=== PATIENT | male | born 1970 | race Caucasian/White ===

== ENCOUNTER 2017-02-10 08:04 | Day surgery (SDC) | payer OTHER ==
[2017-02-10] VITALS (9 sets, daily range): BP systolic 107–140; BP diastolic 68–83; PULSE 63–84; RESP 8–18; O2SAT 93–98
[~2017-02-10] VITALS: Ht 182.9 cm; Wt 129.7 kg
[~2017-02-10 08:04] MED LIST: AMLO2.5T PO; Ciprofloxacin Inj 400 MG in IV Premix 1 EACH IV ONE; PRAV10TA2 PO; SILO8CAP PO
[2017-02-10] MEDS ORDERED: fentaNYL-PF 50 mCg/mL 2 mL Inj ONE (08:05)
[2017-02-10] MEDS ORDERED: Ondansetron 2 mg/mL 2 mL Inj ONE (08:05)
[2017-02-10] MEDS: Lactated Ringer's 1,000 ML IV SCH ×2 (08:05→09:46)
[2017-02-10] MEDS ORDERED: Dexamethasone 4 mg/mL Inj ONE (08:05)
[2017-02-10] MEDS ORDERED: Propofol 10,000 mCg/mL 20 mL Inj ONE (08:05)
[2017-02-10] MEDS ORDERED: levoFLOXacin 500 mg/100 mL D5W Premix IV ONE (08:19)
[2017-02-10] MEDS ORDERED: fentaNYL-PF 50 mCg/mL 2 mL Inj IVPUSH PRN (09:40)
[2017-02-10] MEDS ORDERED: EPHEDrine Sulfate 50 mg/mL Inj IVPUSH PRN (09:40)
[2017-02-10] MEDS ORDERED: Ondansetron 2 mg/mL 2 mL Inj IVPUSH PRN (09:40)
[2017-02-10] MEDS ORDERED: Lactated Ringer's 1,000 ML IV SCH (09:40)
[2017-02-10] MEDS ORDERED: MetoCLOpramide 5 mg/mL 2 mL Inj IVPUSH PRN (09:40)
[2017-02-10] MEDS ORDERED: Phenylephrine 10,000 mCg/mL Inj IVPUSH PRN (09:40)
[2017-02-10] MEDS ORDERED: HYDROmorphone 1 mg/mL Inj IVPUSH PRN (09:40)
[2017-02-10] MEDS ORDERED: Atropine 0.4 mg/mL Inj IVPUSH PRN (09:40)
[2017-02-10] MEDS ORDERED: Labetalol 5 mg/mL 4 mL Inj IV PRN (09:40)
[2017-02-10] MEDS ORDERED: Lactated Ringer's 500 ML IV PRN (09:40)
--- NOTE | 2017-02-10 09:40 | PCM.HPANE ---
Patient Data Surgeon Admitting Provider: Attending Provider:Lorin John MD Primary Care Physician:Anabella Appiah MD Other Provider:,[facility] Reason for Visit Bulbous Uretheral Stricture Ht/WT & BMI Height (Feet): 6 Height (Inches): 0.00 Weight (Kilograms): 129.7 Body Mass Index 38.00 Allergies Coded Allergies: cephalexin (Verified Allergy, Unknown, itching, 02/07/17) Past Anesthesia History Anesthesia History: Positive for:: Fam Anesthesia Reaction (mother had allergic reaction to unknown anes - not used anymore), Denies:: Abnormal Airway, Anesthesia Reactions, Difficult Intubation, Fam Malignant Hypertherm, Malignant Hyperthermia Diabetes History Hx Diabetes?: No MRSA MRSA: No Medications Hypertension Medication: Yes Home Meds Incl Beta Nadir: No Reported Medications Silodosin (Rapaflo)8 Mg Capsule8 Mg PO DAILY 02/07/17 Pravastatin 10 Mg [id number] Mg PO HS Ref 0 02/07/17 Amlodipine 2.5 Mg Tablet2.5 Mg PO DAILY Ref 0 02/07/17 History History of ENT Problems?: Yes HEENT History: Positive for:: Sinus Problem (seasonal allergies to pollens) TMJ (grinds, no nightguard) Denies:: Abnormal Airway Cataracts Difficult Intubation Dysphagia Glaucoma Hearing Problem Hx of Heart Problems?: Yes Cardiovascular History: Positive for:: Hypertension Irregular Heartbeat (with large amounts of caffeine ) Denies:: AICD Abdominal Aortic Aneurism Atrial Fibrillation Chest Pain Congestive Heart Failure Coronary Artery Disease Edema Heart Murmur Pacemaker Peripheral Vascular Rheumatic Fever Thrombophlebitis Valvular Heart Disease Hx of Respiratory Problem?: No Respiratory History: Denies:: Asthma COPD Emphysema Oxygen Administration Pneumonia Tuberculosis Use of C-PAP Machine Use of Inhalers / NEBS Hx Neurologic Problems?: No Neurological History: Denies:: Alzheimer's Disease CVA Dementia Dizziness Headaches Multiple Sclerosis Parkinson's Disease Seizures TIA Hx of GI Problems?: No Gastrointestinal History: Denies:: Cirrhosis Gall Bladder Disease Gastroesphageal Reflux Gastrointestinal Bleeding Heartburn Hepatitis Hiatal Hernia Liver Disease Rectal Bleeding Hx of Problems?: Yes Genitourinary History: Positive for:: Kidney Stones (passed spontaneously- prior hx of ) Denies:: Urinary Tract Infection Other Pertinent History: increasing LUTS current admission problem Male Hx: Denies:: Prostate Problems Scrotal Mass Testicular Surgery Skin History: Denies:: History Skin Disorders? Pressure Ulcers Hx Musculoskeletal Problems?: No Musculoskeletal History: Denies:: Back Injury Degenerative Joint Fibromyalgia Joint Replacement Musculoskeletal Trauma Myasthenia Gravis Osteoarthritis Rheumatoid Arthritis Hx of Psycho/Social Problems?: No Psycho Social History: Denies:: Anxiety Hx Depression Hx Surgeries?: Yes (vas, tonsil, ) Hx Any Other Health Problems?: Yes Other History: Denies:: Cancer Thyroid Disease History Blood Transfusions: Positive for:: Accept Blood Products? Denies:: Blood Transfusions Hx Diabetes: No Hx Alcohol Use: NoHx Substance Use: NoHave You Smoked inLast 12 mo: No Stop/Bang S-Snoring: Do You Snore Loudly: No T-Tired: feel tired, fatigued: No O-Obsered: Observed not breath: No P-Blood Pressure: treated: Yes B- Body Mass Index > 35 kg/m2: Yes A- Age over 50: Yes N- Neck Large Circumference: No G- Gender Male: Yes DARWIN Total Score: 4 DARWIN Risk Assessment: High Risk, =/>3 Yes Risk Assessment Category Category 1A: Patient has history of documented sleep apnea, and HAS NOT received any narcotic, sedative or anesthesia administration during this stay. Category 1B: Patient has history of documented sleep apnea, and HAS received any narcotic , sedative or anesthesia administration during this stay Category 2: Patient has SUSPECTED Obstructive Sleep Apnea, and HAS received any narcotic , sedative or anesthesia administration during this stay. Category 3: Patient has SUSPECTED Obstructive Sleep Apnea and HAS NOT received narcotic, sedative or anesthesia administration during this stay. Category 4: Outpatient in Procedural Areas with known sleep apnea or who screen positive for High Risk via the STOP/BANG questionnaire. Exam Exam General Appearance: Alert, Oriented X3, Cooperative, No Acute Distress HEENT/AIRWAY: MP 2 Lungs: Clear to Auscultation, Normal Air Movement Heart: Exam Unremarkable, Regular Rate/Rhythm, No Murmurs/Rubs/Gallops Meds/Labs/Diagnostics Admission Meds Current Medications Lactated Ringer's (Lr) 1,000 ml @ 120 mls/hr [id number] IV Last administered on t 08:05; Start 02/10/17 at 05:00; Stop 02/10/17 at 13:19 Plan Impression Patient chart reviewed, patient interviewed and anesthestic plan with risks, benefits, and alternatives discussed, and informed consent obtained. NPO Status: 10pm ASA Physical Status: ASA2 Mod Systemic Disease Anesthetic Plan: GA Bene/Risks/Altern/Consents: Yes HP Complete Prior to Induction: Yes Sen Coleman MD Feb 10, 2017 08:44
[2017-02-10] MEDS ORDERED: Iopamidol-300 50 mL Inj IV ONE (09:52)
[2017-02-10] MEDS ORDERED: levoFLOXacin 500 mg Tablet TUBE ONE (09:56)
[2017-02-10] MEDS ORDERED: Belladonna Alk-Opium 60 mg Rectal Suppository RECTAL ONE ×2 (10:06→10:15)
--- NOTE | 2017-02-10 10:49 | PCM.ANEP1 ---
Post Anesthesia Phase 1 PACU Phase 1 Assessment Vital Signs Vital Signs Date Time Temp Pulse Resp B/P Pulse Ox O2 Delivery O2 Flow Rate FiO2 02/10/17 10:40 36.5 68 8 118/79 93 Room Air 02/10/17 10:35 72 10 107/74 94 Room Air 02/10/17 10:30 74 12 110/72 95 Room Air 02/10/17 10:25 75 10 135/82 94 Room Air 02/10/17 10:22 36.1 74 12 140/81 98 Simple Mask 8 02/10/17 08:34 36.5 84 18 131/83 95 Room Air Anesthetic Administered: GA Level of Alertness: Awake, talking SMYTH's with Equal Strength: Yes Pain: No Nausea or Vomiting: No Oxygen Delivery: Simple Mask Lungs: Clear to Auscultation, Normal Air Movement Sen Coleman MD Feb 10, 2017 10:48
--- NOTE | 2017-02-10 10:49 | PCM.ANEP2 ---
Post Anesthesia Evaluation ASA/CMS Post Anesthesia VS in Patient's Normal Range?: Yes Resp Stable; Airway Patent?: Yes CV Function & Hydration Stable: Yes Mental Status Recovered?: Yes Pain control Satisfactory?: Yes N/V Control Satisfactory?: Yes Sen Coleman MD Feb 10, 2017 10:49
--- NOTE | 2017-02-10 23:03 | OP ---
[address] [address] OPERATIVE REPORT PATIENT: CRISTELA BUCKLEY : 1970 MR#: [id number] ADMIT: 02/10/2017 JOB ID: [id number] DATE OF SURGERY: PREOPERATIVE DIAGNOSIS(ES): 1. Severe lower urinary tract symptoms. 2. Bulbar urethral stricture. POSTOPERATIVE DIAGNOSIS(ES): 1. Severe lower urinary tract symptoms. 2. Bulbar urethral stricture. OPERATION PERFORMED: Cystoscopy and visual urethrotomy. SURGEON: Lorin John MD. FINDINGS: Penile urethral segment normal. Very distal bulbar normal. Mid bulbar has an approximately 3 mm stricture that is 1 cm in length. Proximal bulbar urethra is normal. External sphincter intact. Prostate 3.5 to 4 cm length with elevated median bar. Bladder 1+ trabeculation. Normal orifices bilaterally. No stones, diverticulum or were seen. PROCEDURE SUMMARY: Patient was positioned in supine, was administered general anesthesia. He was then repositioned in semi-lithotomy and the lower abdomen, genitalia and groin were prepped and draped in sterile fashion. The 20-Nigerian urethrotome was then advanced to the lower urinary tract with the findings as described above. When the stricture was encountered, the cold knife was used to incise at 12 o'clock deep enough to reach vascular tissue. The scope was then advanced with the findings as described above. The bladder was left partially filled and the urethrotome and scope was removed. A 20-Nigerian silicone catheter was then inserted, the balloon inflated to 10 cc and placed to gravity drainage. The patient was then repositioned supine, awakened, [place], and transported to recovery awake and in stable condition.
== END 2017-02-10 23:59 | disposition home or self-care (01) ==
LOC: SAS 08:04
PROVIDERS: ATTEND Specialist
PROC: 0TND8ZZ Release Urethra, Via Natural or Artificial Opening Endoscopic (ICD-10-PCS; principal; 2017-02-10 10:00)
DX: N35.011 Post-traumatic bulbous urethral stricture (principal); Z87.442 Personal history of urinary calculi; R39.11 Hesitancy of micturition; E66.9 Obesity, unspecified; E78.2 Mixed hyperlipidemia; I10 Essential (primary) hypertension
CPT/HCPCS: 52276; J0131; J1100; J2405; J3010; J7120